=== PATIENT | male | born 1960 | race Caucasian/White ===

== ENCOUNTER 2023-10-05 13:19 | Emergency (ER) | payer MEDICARE, SELFPAY ==
[2023-10-05] VITALS (12 sets, daily range): BP systolic 120–152; BP diastolic 51–81; PULSE 74–90; RESP 16; TEMP 37.1; O2SAT 95–99
--- NOTE | 2023-10-05 13:33 | ED.GENADUL_ITS ---
HPI General Mode of arrival: ambulatory (Crutches, walking boot) . Date/Time Provider Initiated Documentation: 10/05/23 13:23 . Limitations to Documentation: no limitations . Information obtained by: patient, family and RN notes reviewed . HPI Narrative: 63-year-old male presents to the ER with a chief complaint of left foot infection and wound. Patient had left great toe amputated 4 months ago at [facility]. He reports that he has had some drainage with blood and a bone sticking out to the bottom of his foot and some discoloration noted by home health nurse 2 days ago. He also reports fever 102 couple of days ago and possible puncture wound noted to the bottom of his foot. He does have some white discoloration noted to the plantar surface of his foot which is soft. He does have a large incision which is open noted to the medial foot which patient states looks better than it did. It is swollen which patient and family note is at baseline. Related Data Allergies Allergy/AdvReac Type Severity Reaction Status Date / Time No Known Allergies Allergy Unverified 10/05/23 13:25 General Stated Complaint: Orthopedic MANPREET: 3 Review of Systems All systems reviewed & are unremarkable except as noted in HPI and below Exam Const General: cooperative, comfortable and well developed Orientation: alert, awake and oriented x3 Resp Effort & Inspection: normal respiratory effort and able to speak in complete sentences Auscultation: clear to auscultation bilaterally Cardio Rate: regular rate Rhythm: regular rhythm Heart Sounds: S1 normal and S2 normal Extrem Left lower extremity: foot Ankle/foot/toe images: 2 1. Absent Great toe 2. Healing surgical incision, SQ tissue noted, no active draianage noted at this time 3. Approx 1iwg2dy area of white tissue which is soft to palpate 4. Swelling, erythema, warmth Course Vital Signs Vital signs: Vital Signs Temperature 37.1 C 10/05/23 13:26 Pulse 90 10/05/23 13:26 Respiratory Rate 16 10/05/23 13:26 Blood Pressure 152/51 H 10/05/23 13:26 Pulse Oximetry 99 10/05/23 13:26 Temperature 37.1 C 10/05/23 13:26 Temperature Source Temporal Artery Scan 10/05/23 13:26 Pulse 90 10/05/23 13:26 Respiratory Rate 16 10/05/23 13:26 Blood Pressure 152/51 H 10/05/23 13:26 Blood Pressure Position Sitting 10/05/23 13:26 Pulse Oximetry 99 10/05/23 13:26 Oxygen Delivery Method Room Air 10/05/23 13:26 Oxygen Flow Rate 0 10/05/23 13:26 Pain Level 6 10/05/23 13:26 Comment no tylenol today 10/05/23 13:26 Medical Decision Making 63-year-old male presents to the ER with a chief complaint of left foot infection and wound. Patient had left great toe amputated 4 months ago at [facility]. He reports that he has had some drainage with blood and a bone sticking out to the bottom of his foot and some discoloration noted by home health nurse 2 days ago. He also reports fever 102 couple of days ago and possible puncture wound noted to the bottom of his foot. He does have some white discoloration noted to the plantar surface of his foot which is soft. He does have a large incision which is open noted to the medial foot which patient states looks better than it did. It is swollen which patient and family note is at baseline. CBC, CMP, lactate, CT lower extremity with IV contrast ordered. Will plan to consult [facility] podiatry. CBC shows mild leukocytosis with WBC 14, Hgb 11.4 Hct 35.1, Neut 11.8, Lactate 1.0, Sodium 132, Glucose 341, CT pending at this time. Care to be handed off to Chanelle Antunez DRILLING ASSISTANT pending CT and consult with [facility] podiatry. Lab Data Lab results reviewed: Yes I reviewed the patient's lab results. Labs: 10/05/23 14:35 Blood Blood Culture - Pending 10/05/23 14:22 Blood Blood Culture - Pending Laboratory Tests Range/Units 10/05/23 14:22 WBC (4.4-10.8) 10^3/uL 14.00 H RBC (4.36-5.78) 10^6/uL 4.25 L Hgb (13.5-17.5) g/dL 11.4 L Hct (40.0-50.0) % 35.1 L MCV (80-95) fL 83 MCH (27.0-33.0) pg 26.8 L MCHC (32.0-36.0) % 32.5 RDW (11.8-14.1) % 16.9 H Plt Count (130-400) 10^3/uL 281 MPV (8.0-11.0) fL 8.8 Immature Gran % 0.5 Neutrophils % 84.3 Lymphocytes % 6.4 Monocytes % 8.3 Eosinophils % 0.2 Basophils % 0.3 Nucleated RBC % (0.0-0.3) % 0.0 Absolute Neutrophils (1.2-6.7) 10^3/uL 11.80 H Absolute Lymphocytes (1.2-3.4) 10^3/uL 0.90 L Absolute Monocytes (0.1-0.8) 10^3/uL 1.16 H Absolute Eosinophils (0.0-0.7) 10^3/uL 0.03 Absolute Basophils (0.0-0.2) 10^3/uL 0.04 VBG Lactate (0.6-1.4) mmol/L 1.0 Sodium (136-145) mmol/L 132 L Potassium (3.5-5.1) mmol/L 4.2 Chloride (98-107) mmol/L 97 L Carbon Dioxide (21.0-32.0) mmol/L 24.4 Anion Gap (3-11) mmol/L 10.6 BUN (7-18) mg/dL 24 H Creatinine (0.70-1.30) mg/dL 1.1 Est GFR (CKD-EPI 2020) (mL/min/1.73m2) 74.50 Glucose (74-106) mg/dL 341 H Calcium (8.5-10.1) mg/dL 9.8 Total Bilirubin (0.2-1.0) mg/dL 0.6 AST (15-37) U/L 10 L ALT (16-63) U/L 13 L Alkaline Phosphatase (46-116) U/L 100 Total Protein (6.4-8.2) g/dL 7.7 Albumin (3.4-5.0) g/dL 3.4 Quality:[facility] Health Related Social Needs: 2 No Data to Display [facility] Social History Smoking risk assessment performed?: No Sign Out Sign Out Data: Sign Out Comment: 63 year old male IDDM, with peripheral Neuropathy presents with left foot wound and discoloration. Reports may have sustained a puncture wound. Pending CT extremity to foot to rule out abscess. Cefepime 2gm IVPB given here. Last updated by Paige Floyd NP at 10/05/23 15:32 Discharge Plan Discharge Details Chief Complaint: Orthopedic Primary Care Provider: Unknown,Unknown ED Provider: Paige Floyd
--- NOTE | 2023-10-05 14:00 | DI.CT_ITS ---
Exam(s) CT LOWER EXTREMITY LT W EXAM: CT LOWER EXTREMITY LT W CLINICAL HISTORY: Diabetic foot, wound, Recent Surgery, R/O abscess. TECHNIQUE: Imaging Protocol: Axial computed tomography images with coronal and sagittal reformatted images were created and reviewed. CONTRAST MATERIAL: Intravenous: Omnipaque 350 Contrast volume:100 ml Contrast route:IV - COMPARISON: No exams were available for comparison FINDINGS: Bones: Amputation of the 1st metatarsal with small residual portion at the base. Disorganization at the tarsal metatarsal joints of multiple bony erosions, cysts in with Charcot joint. Osteomyelitis n ot excluded. Soft Tissues: Marked diffuse soft tissue edema. Soft tissue air seen at the plantar, lateral aspect of the foot at the level of the cuboid. Drainable collection measuring approximately 2.5 cm. Other visible abscess measuring 2.8 x 1 cm collection noted at the plantar aspect at the level of the 3rd and 4th metatarsals. Some soft tissue air also seen at the dorsal lateral aspect of the foot tarsal region. marked thickening of the peroneal tendons proximally. Some fluid around flexor hallucis tendon poste rior to tibia. Other tendons unremarkable. IMPRESSION: Charcot foot. Multiple bony erosions. Osteomyelitis not excluded. Extensive stool oft tissue swelling with two visible discrete drainable abscess collections. RADIATION DOSE DELIVERED: 640.36mGy.cm Total DLP DATA REPOSITORY: All CT scans at this facility are submitted to the National Radiology Data Registry (NRDR) Dose Index Registry (DIR) with the [employer] (ACR). RADIATION OPTIMIZATION: All CT scans at this facility use at least one of these dose optimization te chniques: automated exposure control; mA and/or kV adjustment per patient size (includes targeted exa ms where dose is matched to clinical indication); or iterative reconstruction.
[2023-10-05 14:33] LABS: Abs Immature Grans 0.07 10^3/uL (0.0-0.06); Absolute Basophil Count 0.04 10^3/uL (0.0-0.2); Absolute Eosinophil Count 0.03 10^3/uL (0.0-0.7); Absolute Monocyte Count 1.16 10^3/uL (0.1-0.8); Basophils % 0.3; Eosinophils % 0.2; HCT 35.1 % (40.0-50.0); HGB 11.4 g/dL (13.5-17.5); Immature Grans % 0.5; Lymphocytes % 6.4; MCH 26.8 pg (27.0-33.0); MCHC 32.5 % (32.0-36.0); MCV 83 fL (80-95); MPV 8.8 fL (8.0-11.0); Monocytes % 8.3; Neutrophils % 84.3; Platelet Count 281 10^3/uL (130-400); RBC 4.25 10^6/uL (4.36-5.78); RDW 16.9 % (11.8-14.1); RDW-SD 51.6 fL
[2023-10-05 14:50] LABS: ALT 13 U/L (16-63); AST 10 U/L (15-37); Albumin 3.4 g/dL (3.4-5.0); Alkaline Phosphatase 100 U/L (46-116); Anion Gap 10.6 mmol/L (3-11); BUN 24 mg/dL (7-18); Bilirubin, Total 0.6 mg/dL (0.2-1.0); CO2 24.4 mmol/L (21.0-32.0); CREATININE 1.1 mg/dL (0.70-1.30); Calcium 9.8 mg/dL (8.5-10.1); Chloride 97 mmol/L (98-107); Glucose 341 mg/dL (74-106); Potassium 4.2 mmol/L (3.5-5.1); Sodium 132 mmol/L (136-145); Total Protein 7.7 g/dL (6.4-8.2)
[2023-10-05] MEDS: Lactated Ringers 500 ML IV (15:35)
[2023-10-05] MEDS: CEFEPIME 2 GM in Normal Saline 100 ML IVPB (15:35)
[2023-10-05] MEDS: Omnipaque 350 MG/ML 100 ML BTL IJ (15:44)
[2023-10-05] MEDS: Lactated Ringers 1,000 ML 100 ML IV (16:36)
--- NOTE | 2023-10-05 17:12 | ED.GENADUL_ITS ---
HPI General Mode of arrival: ambulatory (Crutches, walking boot) . Date/Time Provider Initiated Documentation: 10/05/23 13:23 . Limitations to Documentation: no limitations . Information obtained by: patient, family and RN notes reviewed . Related Data Home Medications Medication Instructions Recorded Confirmed clindamycin HCl 300 mg capsule 300 mg PO QID #40 caps 10/05/23 levofloxacin 750 mg tablet 750 mg PO DAILY #20 tabs 10/05/23 Previous Rx's Medication Instructions Recorded clindamycin HCl 300 mg capsule 300 mg PO QID #40 caps 10/05/23 levofloxacin 750 mg tablet 750 mg PO DAILY #20 tabs 10/05/23 Allergies Allergy/AdvReac Type Severity Reaction Status Date / Time No Known Allergies Allergy Unverified 10/05/23 13:25 General Stated Complaint: Orthopedic MANPREET: 3 Course Vital Signs Vital signs: Vital Signs Temperature 37.1 C 10/05/23 13:26 Pulse 90 10/05/23 13:26 Respiratory Rate 16 10/05/23 13:26 Blood Pressure 152/51 H 10/05/23 13:26 Pulse Oximetry 99 10/05/23 13:26 Temperature 37.1 C 10/05/23 13:26 Temperature Source Temporal Artery Scan 10/05/23 13:26 Pulse 75 10/05/23 15:43 Respiratory Rate 16 10/05/23 13:26 Respiratory Effort Normal 10/05/23 15:46 Blood Pressure 134/81 10/05/23 15:43 Blood Pressure Mean 93 10/05/23 15:43 Blood Pressure Position Sitting 10/05/23 13:26 Pulse Oximetry 98 10/05/23 15:44 Oxygen Delivery Method Room Air 10/05/23 13:26 Oxygen Flow Rate 0 10/05/23 13:26 Pain Level 6 10/05/23 13:26 Comment no tylenol today 10/05/23 13:26 Lab/Test Results Lab/Test Results: 10/05/23 14:35 Blood Blood Culture - Pending 10/05/23 14:22 Blood Blood Culture - Pending Laboratory Tests Range/Units 10/05/23 14:22 WBC (4.4-10.8) 10^3/uL 14.00 H RBC (4.36-5.78) 10^6/uL 4.25 L Hgb (13.5-17.5) g/dL 11.4 L Hct (40.0-50.0) % 35.1 L MCV (80-95) fL 83 MCH (27.0-33.0) pg 26.8 L MCHC (32.0-36.0) % 32.5 RDW (11.8-14.1) % 16.9 H Plt Count (130-400) 10^3/uL 281 MPV (8.0-11.0) fL 8.8 Immature Gran % 0.5 Neutrophils % 84.3 Lymphocytes % 6.4 Monocytes % 8.3 Eosinophils % 0.2 Basophils % 0.3 Nucleated RBC % (0.0-0.3) % 0.0 Absolute Neutrophils (1.2-6.7) 10^3/uL 11.80 H Absolute Lymphocytes (1.2-3.4) 10^3/uL 0.90 L Absolute Monocytes (0.1-0.8) 10^3/uL 1.16 H Absolute Eosinophils (0.0-0.7) 10^3/uL 0.03 Absolute Basophils (0.0-0.2) 10^3/uL 0.04 VBG Lactate (0.6-1.4) mmol/L 1.0 Sodium (136-145) mmol/L 132 L Potassium (3.5-5.1) mmol/L 4.2 Chloride (98-107) mmol/L 97 L Carbon Dioxide (21.0-32.0) mmol/L 24.4 Anion Gap (3-11) mmol/L 10.6 BUN (7-18) mg/dL 24 H Creatinine (0.70-1.30) mg/dL 1.1 Est GFR (CKD-EPI 2020) (mL/min/1.73m2) 74.50 Glucose (74-106) mg/dL 341 H Calcium (8.5-10.1) mg/dL 9.8 Total Bilirubin (0.2-1.0) mg/dL 0.6 AST (15-37) U/L 10 L ALT (16-63) U/L 13 L Alkaline Phosphatase (46-116) U/L 100 Total Protein (6.4-8.2) g/dL 7.7 Albumin (3.4-5.0) g/dL 3.4 Medical Decision Making Care of patient assumed from HANNAH Mauro. CAT scan results were pending. These results have been called to me by Dr. Jeong as there are multiple bony erosions suspicious for osteomyelitis and extensive soft tissue swelling with multiple drainable abscesses. He had been given cefepime and we were awaiting a callback from [facility] [[email or web address]] where he receives his care. I did speak with Dr. PEREZ from vascular surgery who did recommend ED to ED transfer for further management. Report was provided to Dr. Arora at the [facility] [[email or web address]] emergency department and transfer paperwork was initiated. Recommendations were reviewed with patient and his and the patient is declining transfer to [facility] [[email or web address]] at this time. I did discuss risks and benefits with the patient including but not limited to loss of limb and life. He verbalizes understanding and demonstrates capacity. His is not in agreement with his decision to leave against advice but her attempts to persuade him were unsuccessful. I will provide him with prescriptions for levofloxacin and clindamycin and advised him to follow-up with his outpatient towel sewer as soon as possible or return sooner to the nearest emergency department for worsening symptoms. Patient verbalizes understanding and still chooses to leave AGAINST MEDICAL ADVICE. Medical Records Medical records reviewed: Yes I reviewed the patient's medical records. Imaging Data Radiologic Study: Imaging: CT Scan Radiologist's impression: Exam(s) a CT:CT lower extremity LT w Exam(s) CT LOWER EXTREMITY LT W EXAM: CT LOWER EXTREMITY LT W CLINICAL HISTORY: Diabetic foot, wound, Recent Surgery, R/O abscess. TECHNIQUE: Imaging Protocol: Axial computed tomography images with coronal and sagittal reformatted images were created and reviewed. CONTRAST MATERIAL: Intravenous: Omnipaque 350 Contrast volume:100 ml Contrast route:IV - COMPARISON: No exams were available for comparison FINDINGS: Bones: Amputation of the 1st metatarsal with small residual portion at the base. Disorganization at the tarsal metatarsal joints of multiple bony erosions, cysts in with Charcot joint. Osteomyelitis not excluded. Soft Tissues: Marked diffuse soft tissue edema. Soft tissue air seen at the plantar, lateral aspect of the foot at the level of the cuboid. Drainable collection measuring approximately 2.5 cm. Other visible abscess measuring 2.8 x 1 cm collection noted at the plantar aspect at the level of the 3rd and 4th metatarsals. Some soft tissue air also seen at the dorsal lateral aspect of the foot tarsal region. marked thickening of the peroneal tendons proximally. Some fluid around flexor hallucis tendon posterior to tibia. Other tendons unremarkable. IMPRESSION: Charcot foot. Multiple bony erosions. Osteomyelitis not excluded. Extensive stool oft tissue swelling with two visible discrete drainable abscess collections. Lab Data Lab results reviewed: Yes I reviewed the patient's lab results. Quality:[facility] Health Related Social Needs: No Data to Display PFSH All Active Problems (Updated 10/05/23 @ 17:13 by Chanelle Antunez NP) Diabetic infection of left foot (Acute) Social History Smoking risk assessment performed?: No Sign Out Sign Out Data: Sign Out Comment: 63 year old male IDDM, with peripheral Neuropathy presents with left foot wound and discoloration. Reports may have sustained a puncture wound. Pending CT extremity to foot to rule out abscess. Cefepime 2gm IVPB given here. Last updated by Paige Floyd NP at 10/05/23 15:32 Discharge Plan Disposition Patient Disposition: Against Medical Advice Condition: Serious Discharge Details Clinical Impression: Diabetic infection of left foot Primary Care Provider: Unknown,Unknown ED Provider: Chanelle Antunez Home Meds and New Rx's Prescriptions: New levofloxacin 750 mg tablet 750 mg PO DAILY Qty: 20 0RF clindamycin HCl 300 mg capsule 300 mg PO QID Qty: 40 0RF Discharge Instructions Instructions: Diabetic Foot Ulcers (ED) Additional Instructions: You have been diagnosed with diabetic foot infection with multiple drainable abscesses. We have discussed your case with Dr. PEREZ and Dr. Arora at [facility] who have excepted you in transfer for further evaluation and management of your abscesses. After discussing risks and benefits of transfer you have declined and wished to leave here AGAINST MEDICAL ADVICE. Risks include worsening infection, leading to loss of limb or life. You are advised to follow-up with your outpatient team as soon as possible or return to the nearest emergency department for new or worsening symptoms. You have been provided antibiotics which will likely not clear this infection as we suspect that you need surgical intervention. Referrals: Unknown,Unknown [Primary Care Provider] - Discharge Data Discharge Date/Time-TO BE ENTERED AT DEPARTURE: 10/05/23 17:13
--- OUTSIDE RECORDS SUMMARY | 2023-10-06 13:03 | XMS_ITS | Continuity of Care Document ---
Author Name Unknown Address [address] [place] [address] Phone [facility] Address [address] [place] [address] Phone Care Team Providers Care Lawn Mower Repairer Name Role Phone LuciaAnder Primary Care Provider Allergies, Adverse Reactions, Alerts Allergen Type Severity Reaction Last Updated Verified Status No Known Drug Allergies Allergy none A ugust 2019 11:18am No Active Medications Medication Status Dose Units Route Sig Qty Days Start Date End Date Instructions Gabapentin (Gabapentin 600 mg tab) 600 MG Tab Active 600 MG PO TWICE A DAY July 01, 2014 10:20am Insulin Glargine, Recombinan (Lantus Insulin) 100 UNIT/ML Ml Active 30 UNITS SC BEDTIME July 01, 2014 10:20am Atorvastatin Active TABLET 2019 11:18am Hydrocodone-Ac etaminophen Active TABLET May 03, 2020 11:18am Lisinopril Active TABLET May 03, 2020 11:18am Prednisone Active 20 MG PO DAILY 12 May 03, 2020 11:39am Take 3 tabs p.o. once daily x2 days, then 2 tabs p.o. once daily x2 days, then 1 tab p.o. once daily x2 days. Problems Active Problems Medical Problem Onset Date Status Allergic urticaria Active Advance Directives Advance Directive Response Recorded Date/ Time Does patient have an Advanced Directive? No July 01, 2014 10:03am Do we have a copy on file here at [facility]? No May 03, 2020 10:50am Pt has a Living Will? No July 012013 10:03am Do we have a copy on file here at [facility]? No May 03, 2020 10:50am Pt has a Power of Rubber And Plastics Worker? No Octo 2013 10:03am Do we have a copy on file here at [facility]? No May 03, 2020 10:50am Encounters Encounter Location(s) Arrival/Admit Date Discharge/Depart Date Provider(s) Departed Emergency [facility] Urgent [facility] May 03, 2020 10:43am May 03, 2020 11:44am null Assessments No Assessments Information Available Functional Status Observation Response Date Recorded Living Situation With Spouse May 03 11:19am Goals Goals may be documented in an alternate section. Mental Status No Mental Status Information Available Medical Equipment No Medical Equipment Information available Insurance Providers Guarantor Dax Maddox Address [address] [place] [id number] Contact Info. Home Phone: Payer Policy Id Coverage Id Subscriber's Name Subscriber Id Effective Date Expiration Date [employer] (DO NOT USE) [id number] DAX MADDOX [id number] 2016 [employer] [id number] BLANQUITA MADDOX [id number] SELF PAY Self N/A Plan of Treatment Future Tests Future scheduled test information is unavailable Pending Tests Pending diagnostic test information is unavailable Future Visits Future appointment information is unavailable Referrals to Other Providers Reason for Referral Referral Start Date Provider Provider Contact Information Provider Address Ander Myers MD Work Phone: [address] [place] [phone] Future Procedures Future procedure information is unavailable Future Medications Future medication information is unavailable Patient Instructions Hives (DC) COVID 19 General Instructions- decrease the spread of coronavirus ([facility]) Social History Smoking Status Status Date of Observation Smokes tobacco daily (finding) May 032019 11:19am Observation Status Observation Response Date of Response Alcohol Use No May 03 0 11:39am alcohol intake frequency a few times a week Augu st 2019 11:19am Substance/Street Drug Use No May 03, 2020 11:39am substance use type does not use May 03, 2020 11:19am Smoking Status Current every day smoker May 03, 2020 11:19am Assigned Sex Male Vital Signs Vital Reading Result Reference Range Collection Date/Time Height 72 [in_i] May 03 11:19am Weight 95.25 kg May 03 11:19am Body Temperature 98.7 [degF] 97.6-99.6 April 11:19am Heart Rate 78 /min 60-100 May 03 11:19am Respiratory rate 16 /min 12-24 April 11:19am Oxygen saturation by Pulse oximetry 98 % 95-100 May 03, 2020 11 :19am BP Systolic 124 mm[Hg] 100-140 May 03 11:19am BP Diastolic 78 mm[Hg] 50-85 May 03 11:19am BMI (Body Mass Index) 28.5 kg/m2 May 03, 2020 11:19am Hospital Discharge Instructions Additional Instructions Take the prednisone as prescribed until gone. You can continue to take the Benadryl as needed for itching but the steroids should help with the itching after a couple of days. You do not need to continue the topical treatments as they are much less effective. Try to avoid scratching as best as you can as this can lead to a secondary infection.
--- OUTSIDE RECORDS SUMMARY | 2023-10-06 13:03 | XMS_ITS | Continuity of Care Document ---
Author Name [facility] Address [address] [place] [address] Organization [facility] Address [address] [place] [address] Care Team Providers Care Chip Drier Name Role Phone Ander Myers Primary Care Physician [phone] Allergies, Adverse Reactions, Alerts Allergen Type Severity Reaction Last Updated Verified Status No Known Drug Allergies Allergy none May 03, 2020 N Active Medications Active Medications Medication Dose Units Route Sig Qty Start Date Status In structions Gabapentin [Gabapentin 600 mg tab] 600 MG ORAL TWICE A DAY July 01, 2014 Active Insulin Glargine, Recombinan [Lantus Insulin] 30 UNITS SUBCUTANEOUS BEDTIME July 01, 2014 Active Atorvastatin May 03, 2020 Active Hydrocodone-Roddy taminophen May 03, 2020 Active Lisinopril May 03, 2020 Active Prednisone 20 MG ORAL DAILY 12 May 03, 2020 Active Take 3 tabs p.o. once daily x2 days, then 2 tabs p.o. once daily x2 days, then 1 tab p.o. once daily x2 days. Problem List Active Problems Medical Problem Onset Date Status Allergic urticaria Active Procedures No known history of procedures. Relevant Diagnostic Tests and/or Laboratory Data No known relevant diagnostic tests, laboratory data, and/or discharge summary. Hospital Discharge Instructions Additional Discharge Instructions Take t he prednisone as prescribed until gone. You can continue to take the Benadryl as needed for itching but the steroids should help with the itching after a couple of days. You do not need to continue the topical treatments as they are much less effective. Try to avoid scratching as best as you can as this can lead to a secondary infection. Instruction/Education Provided Adrian VAZQUEZ ) COVID 19 General Instructions- decrease the spread of coronavirus ([facility]) Hospital Discharge Medications Medication Dose Units Route Sig Qty Days Order Date Status Instructions Gabapentin 600 MG ORAL TWICE A DAY July 01, 2014 Active Insulin Glargine, Recombinan 30 UNITS SUBCUTANEOUS BEDTIME Octobe r 2013 Active Atorvastatin Apr us2019 Active Hydrocodone-Ac etaminophen May 03, 2020 Active Lisinopril 2019 Active Prednisone 20 MG ORAL DAILY 12 2019 Active Take 3 tabs p.o. once daily x2 days, then 2 tabs p.o. once daily x2 days, then 1 tab p.o. once daily x2 days. Encounters Encounter Facility Location Admit/Visit Date Discharge/Departure Date Attending Provider Departed Emergency [facility] May 03, 2020 10:43am May 03, 2020 11:44am Functional Status Query Response Date Recorded Comment Living Situation With Spouse May 03, 2020 11:19am Immunizations No known immunizations. Payers Payer Name Policy Type Covered Alliance Party Covered Alliance Party Id Relationship Subscriber Subscriber Id [employer] (DO NOT USE) Commercial DAX MADDOX [id number] Self/Same as Patient DAX MADDOX [id number] EM[employer]YE[employer] Commercial BLANQUITA MADDOX [id number] Spouse BLANQUITA MADDOX [id number] SELF PAY Personal Plan of Care Instructions Hives (DC) COVID 19 General Instructions- decrease the spread of coronavirus ([facility]) Social History Query Response Date Recorded Comment Alcohol Use No May 03, 2020 11:39am Smoking Status Current every day smoker May 03 0 11:19am Substance/Street Drug Use No May 03, 2020 11:39am alcohol intake frequency a few times a week May 03, 2020 11:19am substance use type does not use May 03, 2020 11:19a m Query Response Start Date Stop Date Smoking Status Current every day smoker September 18 3 Vital Signs Vital Reading Result Reference Range Collection Date/Time Height 6 ft May 03, 2020 11:19am Weight 95.254 kg May 03, 2020 11:19am Temperature 98.7 F 97.6 F-99.6 F May 03 0 11:19am Pulse 78 BPM 60-100 May 03, 2020 11:19am Respiration 16 RPM 12-24 May 03, 2020 11:19am Pulse Oximetry 98 % 95-100 May 03 11:19am Blood Pressure Systolic 124 100-140 [facility] 2019 11:19am Blood Pressure Diastolic 78 50-85 Apr [facility] 2019 11:19am Body Mass Index 28.5 May 03, 2 020 11:19am
--- OUTSIDE RECORDS SUMMARY | 2023-10-06 13:03 | XMS_ITS | Continuity of Care Document ---
Author Name Unknown Address [address] [place] [address] Phone [facility] Address [address] [place] [address] Phone Care Team Providers Care Shrimp Picker Name Role Phone LuciaAnder Primary Care Provider [...] have a copy on file here at [facility]? No May 03, 2020 10:50am Pt has a Living Will? No July 012013 10:03am Do we have a copy on file here at [place]? No May 03, 2020 10:50am Pt has a Power of Sales Correspondence Clerk? No Octo 2013 10:03am Do we have a copy on file here at [place]? No May 03, 2020 10:50am Encounters Encounter Location(s) Arrival/Admit Date Discharge/Depart Date Provider(s) Departed Emergency [facility] May 03, 2020 10:43am May 03, 2020 11:44am null Assessments No Assessments Information Available Functional Status Observation Response Date Recorded Living Situation With Spouse May 03 11:19am Goals Goals may be documented in an alternate section. Mental Status No Mental Status Information Available Medical Equipment No Medical Equipment Information available Insurance Providers Guarantor Dax Maddox Address [address] [place] [id number] Contact Info. Home Phone: Payer Policy Id Coverage Id Subscriber's Name Subscriber Id Effective Date Expiration Date [employer] (DO NOT USE) [id number] DAX MADDOX [id number] 2014 [employer]YE[employer] [id number] BLANQUITA MADDOX [id number] SELF PAY Self N/A Plan of Treatment Future Tests Future scheduled test information is unavailable Pending Tests Pending diagnostic test information is unavailable Future Visits Future appointment information is unavailable Referrals to Other Providers Reason for Referral Referral Start Date Provider Provider Contact Information Provider Address Ander Myers MD Work Phone: [address] [place] [phone] Future Procedures Future procedure information is unavailable Future Medications Future medication information is unavailable Patient Instructions Hives (DC) COVID 19 General Instructions- decrease the spread of coronavirus ([place]) Social History Smoking Status Status Date of [...]
--- OUTSIDE RECORDS SUMMARY | 2023-10-06 13:03 | XMS_ITS | Continuity of Care Document ---
Author Name [facility] Address [address] [place] [address] Organization [facility] Address [address] [place] [address] Allergies, Adverse Reactions, Alerts Allergen Type Severity Reaction Last Updated Verified Status No Known Drug Allergies Allergy July 04, 2014 N Active Medications Active Medications Medication Dose Units Route Sig Start Date Status Gabapentin [Gabapentin 600 mg tab] 600 MG ORAL TWICE A DAY July 01, 2014 Active Insulin Glargine, Recombinan [Lantus Insulin] 30 UNITS SUBCUTANEOUS BEDTIME July 01, 2014 Active Problem List No problem information available. Procedures No known history of procedures. Relevant Diagnostic Tests and/or Laboratory Data No known relevant diagnostic tests, laboratory data, and/or discharge summary. Hospital Discharge Instructions No known hospital discharge instructions. Hospital Discharge Medications Medication Dose Units Route Sig Qty Days Order Date Status Instructions Gabapentin 600 MG ORAL TWICE A DAY July 01, 2014 Active Insulin Glargine, Recombinan 30 UNITS SUBCUTANEOUS BEDTIME Octobe r 2013 Active Functional Status No known functional status. Immunizations No known immunizations. Payers Payer Name Policy Type Covered Green Party Covered Green Party Id Relationship Subscriber Subscriber Id [employer] (DO NOT USE) Commercial DAX MADDOX [id number] Self/Same as Patient DAX MADDOX [id number] Plan of Care No Known Plan of Care Information Social History No known social history. Vital Signs No known vital signs results.
== END 2023-10-05 17:13 | disposition left against medical advice (07) ==
PROVIDERS: Registered Nurse Emergency; Emergency Provider Nurse Practitioner Acute Care
DX: L08.89 Other specified local infections of the skin and subcutaneous tissue (principal); E11.40 Type 2 diabetes mellitus with diabetic neuropathy, unspecified; Z79.4 Long term (current) use of insulin; Z89.412 Acquired absence of left great toe
CPT/HCPCS: 80053; 87040; 96365; 99285; 73701; 83605; 85025; 99284; J0692; J3490